=== PATIENT | male | born 1965 | race African-American/Black ===

== ENCOUNTER 2016-12-23 03:02 | Emergency (ER) | payer MEDICARE, OTHER ==
[~2016-12-23] VITALS: Ht 165.1 cm; Wt 89.0 kg
[2016-12-23 03:24] VITALS: Ht 165.1 cm; Wt 89.0 kg
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
--- NOTE | 2016-12-23 04:55 | RADRPT ---
PROCEDURE: Noncontrast CT facial bones. CLINICAL INDICATION: Trauma. TECHNIQUE: Noncontrast CT of the facial bones was obtained. Coronal and sagittal re-formations were provided. The administered radiation dose was CTDI vol = 36 mGy, DLP = 647 mGy-cm. One or more of the following dose reduction techniques were used: automated exposure control, adjustment of the mA and/or kV according to patient size and/or use of iterative reconstruction technique. COMPARISON: No pertinent prior examinations were submitted for comparison. FINDINGS: No acute facial bone fractures are seen. The globes are intact. The bony orbits are without worrisome osseous lesion. The extraocular muscl es and optic nerve complexes are normal in caliber. No intraorbital hematoma or inflammatory change s are present. The paranasal sinuses and mastoid air cells are without fluid. There is moderate mucosal thickening throughout the paranasal sinuses with polyps or retention cysts in the left maxillary sinus. IMPRESSION: No acute fracture. RPTAT: HIKT .Patrick Min MD, MD Date Time Electronically viewed and signed by .Patrick Min MD, on 12/23/2016 04:55 .T/
[2016-12-23] MEDS ORDERED: IBUP-1542 PO (05:10)
--- NOTE | 2016-12-23 07:12 | RADRPT ---
PROCEDURE: XR Left fifth finger CLINICAL INDICATION: 5th finger pain TECHNIQUE: Portable PA, oblique and lateral views of the left fifth finger were obtained. COMPARISON: No prior studies are available for comparison. FINDINGS: The osseous mineralization and alignment are normal. No acute fracture or dislocation is seen. No si gnificant degenerative changes are seen. The soft tissues are unremarkable. IMPRESSION: Unremarkable left fifth finger. Physician Lior Date Time Electronically viewed and signed by Igor Arellano Physician on 12/23/2016 04:59 CS/
== END 2016-12-23 05:16 | disposition left against medical advice (07) ==
LOC: FTE 03:02
DX: S00.83XA Contusion of other part of head, initial encounter (principal); S63.617A Unspecified sprain of left little finger, initial encounter; W22.8XXA Striking against or struck by other objects, initial encounter; Y92.9 Unspecified place or not applicable
CPT/HCPCS: 70486; 73140